=== PATIENT | male | born 1940 | race Caucasian/White ===

== ENCOUNTER 2023-02-22 10:55 | Inpatient (IN) | payer OTHER ==
[~2023-02-22] VITALS: Ht 180.3 cm; Wt 102.5 kg
[2023-02-22 12:00] VITALS: BP 113/69; PULSE 64; RESP 16
[2023-02-22] MEDS ORDERED: LIDOCAINE HCL 400MG/20ML VIAL ONE (13:56)
[2023-02-22] MEDS ORDERED: IOHEXOL 350 MG/ML 100ML INFUS..BTL IV ONE (13:56)
[2023-02-22] MEDS ORDERED: HEPARIN 10,000 UNIT/10ML (1,000 UNIT/ML) VIAL ONE (13:57)
[2023-02-22] MEDS ORDERED: VERAPAMIL HCL 2.5 MG/ML VIAL ONE (13:57)
[2023-02-22] MEDS ORDERED: FENTANYL CITRATE PF 50 MCG/1 ML 2ML VIAL ONE (14:36)
[2023-02-22] MEDS ORDERED: MIDAZOLAM HCL 1 MG/ML 2ML VIAL ONE (14:36)
[2023-02-22] MEDS ORDERED: DIPHENHYDRAMINE HCL 25 MG CAPSULE PO PRN (16:30)
[2023-02-22] MEDS ORDERED: ONDANSETRON 4MG INJ IV PRN (16:30)
[2023-02-22] MEDS ORDERED: ACETAMINOPHEN 325 MG TAB PO PRN (16:30)
[2023-02-22] MEDS ORDERED: 0.9%NACL 1000ML 1,000 ML IV SCH (17:30)
[2023-02-22 19:15] VITALS: O2SAT 94
[2023-02-22 19:28] VITALS: BP 145/75; PULSE 45; RESP 16
[2023-02-22 20:27] VITALS: BP 140/75; PULSE 56; RESP 18
[2023-02-22] MEDS ORDERED: ATORVASTATIN 40 MG TABLET PO SCH (21:00)
[2023-02-22] MEDS ORDERED: METO-408 PO (22:17)
[2023-02-22] MEDS ORDERED: TAMS-1 PO (22:17)
[2023-02-22] MEDS ORDERED: ASPI-1197 PO (22:17)
[2023-02-22] MEDS ORDERED: CLOP75TA32 PO (22:17)
[2023-02-22] MEDS ORDERED: FLUT1BLS23 IH (22:17)
[2023-02-22] MEDS ORDERED: ATOR-2 PO (22:17)
[2023-02-22] MEDS ORDERED: ATROPINE 1MG SYG IVP ONE (23:02)
[2023-02-22 23:22] VITALS: BP 138/75; PULSE 61; RESP 18
[2023-02-22 23:45] VITALS: BP 134/74; PULSE 59; RESP 18
[2023-02-23] VITALS (10 sets, daily range): BP systolic 128–151; BP diastolic 57–86; PULSE 53–65; RESP 18–20; O2SAT 94
[2023-02-23 06:58] LABS: BASOPHILS # (AUTO) 0.04 K/uL (0.00-0.20); BASOPHILS % (AUTO) 0.6 % (0.0-5.0); EOSINOPHILS # (AUTO) 0.11 K/uL (0.00-0.70); EOSINOPHILS % (AUTO) 1.6 % (0.0-8.0); HEMATOCRIT 37.7 % (42-54); IMMATURE GRANULOCYTE ABSOLUTE 0.01 K/uL (0-1); LYMPHOCYTES # (AUTO) 1.5 K/uL (1.0-4.8); LYMPHOCYTES % (AUTO) 21.8 % (21.0-51.0); MEAN CORPUSCULAR HEMOGLOBIN 31.1 pg (27.0-33.0); MEAN CORPUSCULAR HGB CONC 32.6 g/dL (32.0-36.0); MEAN CORPUSCULAR VOLUME 95.2 fL (79-99); MONOCYTES # (AUTO) 0.6 K/uL (0.1-1.0); MONOCYTES % (AUTO) 9.1 % (3.0-13.0); NEUTROPHILS # (AUTO) 4.7 K/uL (1.8-7.7); NEUTROPHILS % (AUTO) 66.8 % (40.0-77.0); PLATELET COUNT (AUTO) 196 K/uL (130-400); RED BLOOD CELL COUNT(AUTO) 3.96 MIL/uL (4.50-6.20); RED CELL DISTRIBUTION WIDTH 13.5 % (11.0-15.5)
[2023-02-23 07:18] LABS: POTASSIUM 3.8 mmol/L (3.5-5.1)
[2023-02-23 08:00] LABS: HEMOGLOBIN A1C 6.3 % (4.0-6.0)
[2023-02-23] MEDS ORDERED: CLOPIDOGREL 75MG TAB PO SCH (09:00)
[2023-02-23] MEDS ORDERED: ASPIRIN 81 MG EC TAB PO SCH (09:00)
[2023-02-23] MEDS ORDERED: NITR0.4T50 SL (10:41)
[2023-02-23] MEDS ORDERED: TICAGRELOR 90 MG TABLET PO SCH (17:30)
[2023-02-24] MEDS ORDERED: TICAGRELOR 90 MG TABLET PO SCH (09:00)
== END 2023-02-23 19:05 | disposition home or self-care (01) | DRG 246 ==
LOC: 2DH 11:36
PROVIDERS: ADMIT Hospitalist; ATTEND Hospitalist
PROC: 4A023N7 Measurement of Cardiac Sampling and Pressure, Left Heart, Percutaneous Approach (ICD-10-PCS; principal; 2023-02-22)
PROC: 027035Z Dilation of Coronary Artery, One Artery with Two Drug-eluting Intraluminal Devices, Percutaneous Approach (ICD-10-PCS; 2023-02-22)
PROC: B2111ZZ Fluoroscopy of Multiple Coronary Arteries using Low Osmolar Contrast (ICD-10-PCS; 2023-02-22)
DX: T82.855A Stenosis of coronary artery stent, initial encounter (principal); I21.4 Non-ST elevation (NSTEMI) myocardial infarction; I25.10 Atherosclerotic heart disease of native coronary artery without angina pectoris; E78.5 Hyperlipidemia, unspecified; I10 Essential (primary) hypertension; J44.9 Chronic obstructive pulmonary disease, unspecified; N40.0 Benign prostatic hyperplasia without lower urinary tract symptoms; Z96.653 Presence of artificial knee joint, bilateral; Y83.1 Surgical operation with implant of artificial internal device as the cause of abnormal reaction of the patient, or of later complication, without mention of misadventure at the time of the procedure; Z79.82 Long term (current) use of aspirin; Z79.02 Long term (current) use of antithrombotics/antiplatelets
CPT/HCPCS: 36415; 80048; 80061; 82306; 83036; 85025; 85730; 93306; 93356; 93454; 99156; 99157; C1769; C1887; C1894; C9600; G0378; J0461; J1644; J2250; J3010; J3490; Q9967; C1725; C1874; Q9965